=== PATIENT | female | born 1930 | race Caucasian/White ===

== ENCOUNTER 2017-07-29 22:23 | Observation (INO) ==
--- NOTE | 2017-07-29 22:35 | Emergency Department Note ---
Disposition Clinical Impression: Chest pain Disposition: Transfer Short-Term Hosp Referrals: Manoj Coombs MD [Primary Care Provider] - Forms: ED Satisfaction Letter Chest Pain HPI - General Chief Complaint: ED Nausea/Vomiting/Diarrhea Stated Complaint: heart burn Time Seen by Provider: 07/29/17 22:31 Source: patient Limitations: no limitations Vital Signs Reviewed: Yes Nursing Notes Reviewed: Yes - Related Data Home Medications Medication Instructions Recorded Confirmed Amlodipine Besylate 10 mg PO 07/29/17 Hydrochlorothiazide 07/29/17 Levothyroxine [Synthroid] 88 mcg PO 0630 07/29/17 07/29/17 Losartan Potassium [Cozaar] 100 mg PO DAILY 07/29/17 07/29/17 Metoprolol Succinate 100 mg PO 07/29/17 Potassium Chloride [Klor-Con 10] 10 meq PO 07/29/17 Ranitidine HCl [Zantac] 150 mg PO HS 07/29/17 07/29/17 Allergies Allergy/AdvReac Type Severity Reaction Status Date / Time Sulfa (Sulfonamide Allergy Hives Verified 02/07/16 13:09 Antibiotics) Chest Pain PMH - Past Medical History Medical history: Reports: arthritis, hyperlipidemia, hypertension, thyroid disease Surgical history: Reports: orthopedic, other (Bilateral hip replacements) Psychiatric history: Reports: no psych history MRI TECHNOLOGIST history: Reports: no MRI TECHNOLOGIST history - Social History Smoking Status: Former smoker Alcohol use: Reports: rarely Drug use: Reports: none Course Vital Signs Temperature 97.5 F L 07/29/17 22:28 Pulse Rate 76 07/29/17 22:28 Respiratory Rate 22 07/29/17 22:28 Blood Pressure 152/68 07/29/17 22:28 O2 Sat by Pulse Oximetry 95 07/29/17 22:28 Temperature 97.5 F L 07/29/17 22:28 Pulse Rate 76 07/29/17 22:28 Respiratory Rate 22 07/29/17 22:28 Blood Pressure 152/68 07/29/17 22:28 O2 Sat by Pulse Oximetry 95 07/29/17 22:28 Oxygen Delivery Oxygen Delivery Room Air Chest Pain - MDM Narrative Medical decision making narrative: Discussed the case with Dr. Arciniega who accepts admission hospital. - Lab Data Lab results reviewed: Yes I reviewed the patient's lab results. - Radiology Data Radiology results reviewed: Yes I reviewed the patient's radiology results. - EKG Data EKG attestation: Yes I reviewed and interpreted this EKG. EKG results narrative: Per my read EKG shows normal sinus rhythm with a right bundle-branch pattern rate of 80 bpm there is no acute ST-T wave elevation there is T-wave inversion noted diffusely in leads 2, 3 and aVF as well as V1 to V3 axis and normal QT/ QTC intervals are normal
[2017-07-29] MEDS ORDERED: 0.9 % Sodium Chloride 1,000 ML IVC SCH (22:45)
[2017-07-29] MEDS ORDERED: Aspirin 81 MG TAB.CHEW PO STA (23:00)
[2017-07-29] MEDS: Nitroglycerin 0.4 MG TAB.SUBL SL PRN ×3 (23:05→23:21)
[2017-07-29 23:07] LABS: Basophils % 0.2 %; Eosinophils % 0.1 %; Hematocrit 34.4 % (35.3-44.9); Hemoglobin 11.7 g/dL (11.5-15.4); Immature Granulocytes % 0.5 % (0-4); Lymphocytes # 0.4 K/mcL (0.6-4.6); Lymphocytes % 2.3 %; Mean Platelet Volume 9.1 fL (9.4-12.4); Monocytes # 0.6 K/mcL (0.0-1.3); Monocytes % 3.6 %; Neutrophils # 15.2 K/mcL (1.6-8.9); Platelet Count 341 K/mcL (140-400); Red Blood Count 3.66 M/mcL (3.82-4.97); Red Cell Distribution Width 14.6 % (11.5-14.5); Segmented Neutrophils % 93.3 %
[2017-07-29 23:15] LABS: Activated Partial Thrombo Time 28.5 Seconds (26.0-36.0)
[2017-07-29 23:24] LABS: Alanine Aminotransferase 198 Units/L (0-55); Albumin 3.3 g/dL (3.5-5.0); Albumin/Globulin Ratio 0.8 (1.1-2.2); Alkaline Phosphatase 1184 Units/L (38-126); Aspartate Amino Transferase 313 Units/L (5-34); BUN/Creatinine Ratio 16 (6-26); Bilirubin,Total 2.7 mg/dL (0.2-1.2); Blood Urea Nitrogen 12 mg/dL (7-20); Calcium 10.3 mg/dL (8.6-10.8); Carbon Dioxide 25 mEq/L (19-29); Chloride 100 mEq/L (98-109); Glucose 157 mg/dL (70-99); Osmolality,Calculated 291 (280-300); Potassium 3.3 mEq/L (3.5-4.5); Sodium 139 mEq/L (136-145); Total Protein 7.3 g/dL (6.0-8.3); eGFR For African Americans > 60 (> 60); eGFR For Non-African Americans > 60 (> 60)
[2017-07-29] MEDS ORDERED: GI Cocktail 40 ML EACH PO ONE (23:30)
[2017-07-30] MEDS ORDERED: *HR* Morphine 2 MG/ML SYRINGE IVP ONE (00:04)
[2017-07-30] MEDS ORDERED: Naloxone 0.4 MG/ML INJ IVP PRN (00:05)
[2017-07-30] MEDS ORDERED: Acetaminophen 325 MG TABLET PO PRN (00:05)
[2017-07-30] MEDS ORDERED: 0.9 % Sodium Chloride 1,000 ML IVC SCH (00:15)
[2017-07-30 06:57] LABS: Chol/HDL Ratio 3.8 (0-4.9)
[2017-07-30 11:28] VITALS: BP 125/64
--- NOTE | 2017-07-30 12:29 | Electrocardiograph Report ---
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
--- NOTE | 2017-07-30 12:30 | Electrocardiograph Report ---
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
--- NOTE | 2017-07-30 14:26 | Internal Med History&Physical ---
Date of Encounter: 07/30/17 Time of Encounter: 12:15 Assessment and Plan (1) Chest pain Current visit: Yes Status: Acute Repeat cardiac enzymes were ordered through emergency room. Qualifiers: Chest pain type: unspecified Qualified Code(s): R07.9 - Chest pain, unspecified (2) Elevated LFTs Current visit: Yes Status: Acute We will order CT of abdomen and pelvis and chest to further evaluate and rule out biliary obstruction. Internal Medicine - H&P: HPI Chief complaint: "Heartburn" with vomiting Admitted From: Home Plans for Post Hospital Care: Home History of present illness: Ms. Rodriguez is a 87 year old female who came to emergency room stating she had onset of heartburn approximate 1430 after eating at a local restaurant. The discomfort persisted despite the use of OTC Tums. She had 3 episodes of vomiting over the next few hours. She states the pain was in her epigastric/ lower chest and seemed to radiate to her back. She was evaluated in emergency room and found to have leukocytosis with left shift and elevated LFTs. Chest x- ray showed possible pneumonia. She was admitted to [facility] floor for ongoing care needs. She states she has had similar episodes of "heartburn" intermittently over the past year at a frequency approximately one per week. The discomfort is not associated consistently with food intake or activity. She denies known disorders of her liver gallbladder or exocrine pancreas. She denies pain or discomfort at the present time. Past Med Surg Social Fam HX - Past Medical History Medical history: arthritis, hyperlipidemia, hypertension, thyroid disease Psychiatric history: no psych history - Past Surgical History Surgical History: orthopedic, other - Social History Smoking Status: Former smoker Smokeless Tobacco Status: No Alcohol use: rarely Drug use: none Internal Medicine - H&P: Meds Amlodipine Besylate 10 mg PO DAILY 07/29/17 [History] Hydrochlorothiazide 07/29/17 [History] Levothyroxine [Synthroid] 88 mcg PO 0630 07/29/17 [History] Losartan Potassium [Cozaar] 100 mg PO DAILY 07/29/17 [History] Metoprolol Succinate 100 mg PO DAILY 07/29/17 [History] Potassium Chloride [Klor-Con 10] 10 meq PO DAILY 07/29/17 [History] Ranitidine HCl [Zantac] 150 mg PO HS 07/29/17 [History] 3 Allergy/AdvReac Type Severity Reaction Status Date / Time Sulfa (Sulfonamide Allergy Hives Verified 02/07/16 13:09 Antibiotics) All Systems PM: A 10-system review of systems was performed and is negative for pertinent findings except as documented above in the HPI. Review of systems: Gen.: Her weight has been stable at approximately 60-62 kg since the January 2016 hospitalization. Cardiovascular: She has history of hypertension but denies IN heart failure angina DVT or pulmonary embolus. Respiratory: She smoked from age [age] up to 1 pack per day. She does not wear home oxygen. She has not been diagnosed with COPD/emphysema. GI: As per history of present illness : She denies hematuria dysuria or kidney stones. Neurologic: She denies large distribution strokes or seizures. Endocrine: She has hyperlipidemia and hypothyroidism. She denies diabetes. Hematology/oncology: She had anemia as a child but it resolved. She denies internal malignancies or other blood disorders. Psychiatric: She denies anxiety depression or other mental health issues Musk skeletal: She had a right greater trochanter fracture January 2016 and a left hip fracture in 2011. She has had ankle surgery. She has DJD but no known gout, osteoporosis, or other bone joint or muscle disorders. - Constitutional Vitals: Temp Pulse Resp BP Pulse Ox 98.5 F 68 16 125/64 92 07/30/17 10:40 07/30/17 10:40 07/30/17 10:40 07/30/17 10:40 07/30/17 10:40 Exam: Gen.: She is a well-developed well-nourished female who appears in no severe distress at present time. HEENT: Head is atraumatic and normocephalic. Eyes: EOMI. There is no scleral icterus. Mouth: Mucosa is moist. Neck: Supple and nontender. There is no thyromegaly or adenopathy noted. Heart: Regular without murmurs gallops or ectopics. Lungs: No wheezes or crackles are heard. Abdomen: Soft and nontender. No masses or guarding are noted. Bowel sounds are diminished. Extremities: There is no cyanosis edema or clubbing noted. Dorsalis pedis and posterior tibial pulses are 1-2 over 2 bilaterally. She has DJD changes of her hands feet and knees. Neurologic: Mental status: She is talkative and seems to be a reliable historian. Cranial nerves: Smile is symmetric. Forehead wrinkles bilaterally. Tongue protrudes midline. EOMI. She is hard of hearing. Motor: There is no pronator drift. Cerebellar: Finger to nose is intact bilaterally. Skin: Warm and dry Internal Med - H&P Results - Labs CBC & Chem 7: 07/29/17 22:54 07/29/17 22:54 Labs: Cardiac Enzymes 07/30/17 07/30/17 Range/Units 06:08 12:06 Troponin I 0.01 0.01 (0-0.03) ng/mL - Impressions ITS Impressions Abdomen/Pelvis CT 07/30/17 12:48 IMPRESSION: Cholelithiasis and acute cholecystitis related to common bile duct obstruction. There is a 9 mm, likely obstructing gallstone in the distal common bile duct, at the level of the papilla. There is mild intrahepatic biliary duct dilatation. No acute intrathoracic process. Mild bibasilar atelectasis, worse on the left than the right. D/ / 07/30/2017 14:03:23 Ashanti Leblanc MD / rina Interpreting Provider: Ashanti Leblanc MD Chest CT 07/30/17 12:49
[2017-07-30] MEDS ORDERED: Piperacillin/Tazobactam 3.375 GM in D5% in Water (Mini-Bag+) 100 ML IVPB ONE (15:15)
--- NOTE | 2017-07-30 15:15 | Discharge Summary ---
Date of Encounter: 07/30/17 Time of Encounter: 15:05 - Discharge Diagnosis (1) Acute cholecystitis due to biliary calculus Priority: Primary Status: Acute - Discharge Medications Home Medications: Amlodipine Besylate 10 mg PO DAILY 07/29/17 [History] Hydrochlorothiazide 07/29/17 [History] Levothyroxine [Synthroid] 88 mcg PO 0630 07/29/17 [History] Losartan Potassium [Cozaar] 100 mg PO DAILY 07/29/17 [History] Metoprolol Succinate 100 mg PO DAILY 07/29/17 [History] Potassium Chloride [Klor-Con 10] 10 meq PO DAILY 07/29/17 [History] Ranitidine HCl [Zantac] 150 mg PO HS 07/29/17 [History] Allergies/Adverse Reactions: 3 Allergy/AdvReac Type Severity Reaction Status Date / Time Sulfa (Sulfonamide Allergy Hives Verified 02/07/16 13:09 Antibiotics) Procedures/tests Complete & Pending: Procedures Performed prior 72 hours Category Date Time Status CT abd pelvis wo no iv no oral [CT] Routine Cat Scan 07/30/17 12:[address] chest wo con [CT] Routine Cat Scan 07/30/17 12:49 Draft Date of admission: 07/30/17 00:36 Primary care physician: Manoj Coombs MD - Patient Status Disposition: Transfer Other - Discharge Instructions Hospital course: Ms. Rodriguez is a 87 year old female who came to emergency room stating she had onset of heartburn approximate 1430 after eating at a local restaurant. The discomfort persisted despite the use of OTC Tums. She had 3 episodes of vomiting over the next few hours. She states the pain was in her epigastric/ lower chest and seemed to radiate to her back. She was evaluated in emergency room and found to have leukocytosis with left shift and elevated LFTs. Chest x- ray showed possible pneumonia. She was admitted to [facility] floor for ongoing care needs. Initial orders were written by the emergency room physician. I saw her on July 30 performed a history and physical. CT of chest abdomen pelvis was done to further evaluate. The scan showed 9 mm common bile duct stone with evidence of cholecystitis. I spoke with the patient and her family about the results and recommended she be transferred where she could have appropriate intervention. She chose [facility]. I spoke with the [facility] transfer center and arrangements were finalized her to be transferred there the afternoon of July 30. She will be given a dose of Zosyn and increase IV fluids ordered prior to discharge. - Time Spent with Patient Total time spent providing and/or coordinating discharge services: - Constitutional Vitals: Temp Pulse Resp BP Pulse Ox 98.5 F 68 16 125/64 92 07/30/17 10:40 07/30/17 10:40 07/30/17 10:40 07/30/17 10:40 07/30/17 10:40
[2017-07-30] MEDS ORDERED: 0.45 % Sodium Chloride w/KCl 20 MEQ/1,000 ML MLS IVC SCH (15:30)
== END 2017-07-30 18:20 | disposition short-term general hospital (02) ==
LOC: EMEROOPIK 22:23 → INPPIK 22:23
PROVIDERS: ADMIT Internal Medicine; ATTEND Internal Medicine